=== PATIENT | female | born 1955 | race Caucasian/White ===

== ENCOUNTER → 2023-06-01 14:33 | Outpatient (CLI) | payer MEDICARE, SELFPAY ==
--- NOTE | ~2023-06-01 | XR_ITS ---
EXAM: XR abdomen/kub 1V DATE: 06/01/2023 14:53 HISTORY: Kidney stone . COMPARISON: CT abdomen and pelvis, same date. FINDINGS: Clear lung bases. Surgical clips over the right abdomen Normal bowel gas pattern. No organ omegaly. Rounded calcification over the right upper quadrant, likely gallstone. Surgical suture mater ial over the bowel in the right mid abdomen. Granulomatous calcifications over the spleen. Pelvic phl eboliths. Mild thoracolumbar scoliosis. Degenerative disc disease in the thoracic and lumbar spine. M ild bilateral hip osteoarthritis. Punctate right renal calcification seen by CT not confidently visua lized radiographic. 2 mm linear calcification projecting over the left upper pole. IMPRESSION: Nephrolithiasis. Cholelithiasis. Please also refer to the report on the concurrent CT abd omen and pelvis for additional details. Reviewed, dictated and finalized at [facility] IMPRESSION: Nephrolithiasis. Cholelithiasis. Please also refer to the report on the concurrent CT abdomen and pelvis for additional details.
--- NOTE | ~2023-06-01 | CT_ITS ---
Non-contrast CT scan of the Abdomen and Pelvis Clinical indication: Kidney stone Technique: 2.5 mm axial scans were obtained through the abdomen and pelvis without intravenous or or al contrast. Dose reduction technique was used on this scan by utilizing automated exposure control a nd iterative reconstruction technique. The dose-length product (DLP) was 327.85 mGy-cm. Findings: Images through the lung bases reveal no abnormalities. There is no evidence of renal or ureteral calculi. The kidneys and the ureters are nondilated. The liver, spleen, pancreas, and adrenals appear normal. Calcified gallstone present. There is no aor tic aneurysm. There is no evidence of bowel obstruction. Images through the pelvis were performed. There is no evidence of ascites or lymphadenopathy. Urinary bladder unremarkable. No pelvic mass seen. No ascites. Impression: No renal, ureteral, or bladder stone. No hydronephrosis. Cholelithiasis. Reviewed, dictated and finalized at [facility]. NG [facility]ITCHER Impression: No renal, ureteral, or bladder stone. No hydronephrosis. Cholelithiasis.
== END ==
PROVIDERS: PCP Family Medicine; Visit Provider Urology
DX: N20.0 Calculus of kidney (principal); K80.20 Calculus of gallbladder without cholecystitis without obstruction
CPT/HCPCS: 74018; 74176